=== PATIENT | female | born 1975 | race Caucasian/White ===

== ENCOUNTER 2024-04-20 16:11 | Inpatient (IN) ==
--- OUTSIDE RECORDS SUMMARY | 2024-04-20 16:17 | External Medical Summary | Summary of Care ---
Author Name Unknown Organization [facility] Address [address] [facility] [place] [address] Phone [phone] Care Team Providers Care Line Assigner Name Role Phone Priscilla Steinberg MD Primary Care Provider [phone] Encounter Details Date Type Department Care Team (Late st Contact Info) Description 01/05/2024 Orders Only PATIENT PORTAL DO NOT DELETE THIS DEPT USED BY [place] [id number] Allergies Active Allergy Reactions Criticality Noted Date Comments Albuterol Sulfate (Sensor) Medium 9 Pt has reaction to Proair, tolerates ventolin documented as of this encounter (statuses as of 01/05/2024) Medications Medication Sig Dispensed Refills Start Date End Date Status VENTOLIN HFA 108 (90 Base) MCG/ACT inhaler Inhale 2 Puffs by mouth every 6 hours as needed for Wheezing. 3 Inhaler 3 05/20/2019 Active documented as of this encounter (statuses as of 01/05/2024) Active Problems Problem Noted Date Diagnosed Date Iron deficiency anemia due to chronic blood loss 09/03/2018 Bronchospasm, exercise-induced 08/04/2014 documented as of this encounter (statuses as of 01/05/2024) Resolved Problems Problem Noted Date Diagnosed Date Resolved Date Varicella without complication 12/02/2003 08/04/2014 Other general counseling and advice for contraceptive management 12/02/2003 08/04/2014 Infectious mononucleosis 12/02/200312/2014 documented as of this encounter (statuses as of 01/05/2024) Immunizations Name Administration Dates Next Due COVID-19 mRNA, LNP-s, No Pre serve, 2-Dose Series (Moderna) 09/23/2020,08/25/2020 Seasonal Influenza, PF, 6 M & above, IM , (FluLaval or Fluzone) 06/03/2022,05/14/2021,04/17/2020 TDAP (age 10 and older)(Boostrix) 01/03/2024 documented as of this encounter Social History Tobacco Use Types Packs/Day Years Used Date Smoking Tobacco: Never Smokeless Tobacco: Never Alcohol Use Standard Drinks/Week Comments Not Currently 2.5 (1 standard drink = 0.6 oz p ure alcohol) ocassionally PHQ-2 Answer Date Recorded PHQ-2 Score -1 08/01/2018 Sex and Gender Information Value Date Recorded Sex Assigned at Not on file Gender Identity Not on file Sexual Orientation Not on file Job Start Date Occupation Industry Not on file Not on file Not on file documented as of this encounter Plan of Treatment Upcoming Encounters Date Type Department Care Team (Late st Contact Info) Description 01/06/2025 11:00 AM EDT Office Visit Family Practice [facility] [place] [address] [facility] [place] [address] Priscilla Steinberg MD [address] [place] [address] Health Maintenance Due Date Last Done Comments Pneumococcal Vaccine: Pediatrics (0 to 5 Years) and At-Risk Patients (6 to 64 Years) (1 of 2 - PCV) 1983 HIV Screening 1992 Hepatitis C Screening 1995 Hepatitis B (1 of 3 - 19+ 3-dose series) 1996 Pap Smear 1998 Cervical Cancer Screening 2007 HPV/Co-Test 2007 Mammogram 2017 Depression Screening 08/01/2019 08/01/2018 Diabetes Screening 06/18/2022 06/18/2019, 08/01/2018 Cologuard 2022 Colonoscopy 2022 Colorectal Cancer Screening 2022 Fecal Occult Blood Test 2022 Sigmoidoscopy 2022 COVID-19 Vaccine ( - 2022- season) 2023 09/23/2020, 08/25/2020 Influenza Vaccine (FLU shot) (Season Ended) 2024 06/03/2022, 05/14/2021, 04/17/2020, Additional history exists Lipid Panel 06/18/2024 06/18/2019 DTaP,Tdap,and Td Vaccines (2 - Td or Tdap) 01/02/2034 01/03/2024 GARDASIL-HPV IMMUNIZATION SERIES Aged Out No longer eligible based on patient's age to complete this topic MENINGOCOCCAL (MENACTRA/MENVEO) Aged Out No longer eligible based on patient's age to complete this topic documented as of this encounter Medical Devices Not on filedocumented as of this encounter Care Teams Line Assigner Relationship Specialty Start Date End Date Priscilla Steinberg MD [address] [place] [address] PCP - General Family Medicine 01/03/24 documented as of this encounter
--- OUTSIDE RECORDS SUMMARY | 2024-04-20 16:17 | External Medical Summary | Summary of Care ---
Author Name Unknown Organization [facility] Address [address] [place] [address] Phone [phone] Care Team Providers Care Biometrics Specialist Name Role Phone Priscilla Steinberg MD Primary Care Provider Reason for Visit * Reason Onset Date Comments Appointment 01/07/2024 Colonoscopy Encounter Details Date Type Department Care Team (Late st Contact Info) Description 01/07/2024 Telephone Family Practice [facility] [place] [address] [facility] [place] [address] [facility] [address] App[facility] (Colonoscopy) Allergies Active Allergy Reactions Criticality Noted Date Comments Albuterol Sulfate (Sensor) Medium 9 Pt has reaction to Proair, tolerates ventolin documented as of this encounter (statuses as of 01/07/2024) Medications Medication Sig Dispensed Refills Start Date End Date Status VENTOLIN HFA 108 (90 Base) MCG/ACT inhaler Inhale 2 Puffs by mouth every 6 hours as needed for Wheezing. 3 Inhaler 3 05/20/2019 Active documented as of this encounter (statuses as of 01/07/2024) Active Problems Problem Noted Date Diagnosed Date Iron deficiency anemia due to chronic blood loss 09/03/2018 Bronchospasm, exercise-induced 08/04/2014 documented as of this encounter (statuses as of 01/07/2024) Resolved Problems Problem Noted Date Diagnosed Date Resolved Date Varicella without complication 12/02/2003 08/04/2014 Other general counseling and advice for contraceptive management 12/02/2003 08/04/2014 Infectious mononucleosis 12/02/200312/2014 documented as of this encounter (statuses as of 01/07/2024) Immunizations Name Administration Dates Next Due COVID-19 [...] on file documented as of this encounter Miscellaneous Notes * Telephone Encounter - Maryjane De Guzman OSA - 01/07/2024 2:02 PM EDT Spoke to tiffany theodore 04/29/24. * Telephone Encounter - Anitha Salmeron OSA - 01/07/2024 10:03 AM EDT Patient needs to be scheduled for a colonoscopy R19.5 (ICD-10-CM) - Change in stool caliber Please reach out to the patient to schedule documented in this encounter Plan of Treatment Upcoming Encounters Date Type Department Care Team (Latest Contact Info) Description 04/29/2024 8:00 AM EDT Hospital Encounter [facility], Endoscopy Room [facility] [address] [place] [phone] Florentino Perdomo DO [address] [place] [address] 04/29/2024 8:00 AM EDT - 04/29/2024 8:30 AM EDT Surgery ENDO [facility], Endoscopy Room [facility] [address] [place] [address] Florentino Perdomo DO [address] [place] [address] COLONOSCOPY FLEXIBLE PROXIMAL DIAGNOSTIC 01/06/2025 11:00 AM EDT Office Visit Family Practice [facility] [place] [address] [facility] [place] [address] Priscilla Steinberg MD [address] [facility] [place] [address] Scheduled Procedures Name Priority Associated Diagnoses Date/Ti me COLONOSCOPY FLEXIBLE PROXIMAL DIAGNOSTIC Change in bowel habits 04/29/2024 8:00 AM EDT Health Maintenance Due Date Last Done Comments Pneumococcal Vaccine: Pediatrics (0 to 5 Years) and At-Risk Patients (6 to 64 Years) (1 of 2 - PCV) 1983 HIV Screening 1992 Hepatitis C Screening 1995 Hepatitis B (1 of 3 - 19+ 3-dose series) 1996 Pap Smear 1998 Cervical Cancer Screening 2007 HPV/Co-Test 2007 Depression Screening 08/01/2019 08/01/2018 Diabetes Screening 06/18/2022 06/18/2019, 08/01/2018 Cologuard 2022 Colonoscopy 2022 Colorectal Cancer Screening 2022 Fecal Occult Blood Test 2022 Sigmoidoscopy 2022 COVID-19 Vaccine ( season) 2023 09/23/2020, 08/25/2020 Influenza Vaccine (FLU shot) (Season Ended) 2024 06/03/2022, 05/14/2021, 04/17/2020, Additional history exists Lipid Panel 06/18/2024 06/18/2019 Mammogram 01/02/2025 01/03/2024 DTaP,Tdap,and Td Vaccines (2 - Td or Tdap) 01/02/2034 01/03/2024 GARDASIL-HPV IMMUNIZATION SERIES Aged Out No longer eligible based on patient's age to complete this topic MENINGOCOCCAL (MENACTRA/MENVEO) Aged Out No longer eligible based on patient's age to complete this topic documented as of this encounter Medical Devices Not on filedocumented as of this encounter Care Teams Biometrics Specialist Relationship Specialty Start Date End Date Priscilla Steinberg MD [address] [facility] [place] [address] PCP - General Family Medicine 01/03/24 documented as of this encounter
--- OUTSIDE RECORDS SUMMARY | 2024-04-20 16:17 | External Medical Summary | Summary of Care ---
Author Name Unknown Organization [facility] Address [address] [place] [address] Phone [phone] Care Team Providers Care Automation Tender Name Role Phone Priscilla Steinberg MD Primary Care Provider [phone] Reason for Referral * Evaluate & Treat - Unlimited Visits (Within 10 days (routine)) - Authorized Specialty Diagnoses / Procedures Referred By Betty kan Referred To Contact Psychiatry Diagnoses Inattention Priscilla Steinberg MD [address] [place] [address] Referral ID Status Reason Start Date Expiration Date Visits Requested Visits Authorized [id number] Authorized Specialty Services Required 01/03/[phone] Question Answer Referral Priority Within 10 days (routine) Where should this appointment be scheduled? [facility] Is this referral for medication management? Yes Reason for Referral ADHD Specific Condition Other (Comment) * Evaluate & Treat - Unlimited Visits (Within 30 days (routine)) - Authorized Specialty Diagnoses / Procedures Referred By Contjen t Referred To Contact Obstetrics/Gynecology / Gynecology Obstetrics Diagnoses Menorrhagia with regular cycle Priscilla Steinberg MD [address] [place] [address] Referral ID Status Reason Start Date Expiration Date Visits Requested Visits Authorized [id number] Authorized Specialty Services Required 01/03/[phone] Question Answer What condition is the patient being seen for? Heavy or irregular bleeding Patient will need a TSH, prolactin, CBC with anemia reflex, and an ultrasound prior to being seen by gynecology. I acknowledge Referral Priority Within 30 days (routine) Where should this appointment be scheduled? External * Ancillary Services (Within 10 days (routine)) - Authorized Specialty Diagnoses / Procedures Referred By Betty kan Referred To Contact Gastroenterology Diagnoses Change in stool caliber Priscilla Steinberg MD [address] [place] [address] Referral ID Status Reason Start Date Expiration Date Visits Requested Visits Authorized [id number] Authorized Ancillary Services Required 01/03/[phone] Question Answer Referral Priority Within 10 days (routine) Where should this appointment be scheduled? [facility] Comments ALERT: Do not order for pediatric patients (18 years or younger). Cancel off screen and order PEDS GASTROENTEROLOGY CONSULT (Type: 1 visit only-Evaluate and Treat) The following Pt. Instructions are available: - Gastro Colonoscopy Prep Instructions [[id number]] - Gastro Colonoscopy Prep Instructions (Turkish Version) [[id number]] Go to the Pt. Instructions section within the Visit Navigator to access. Colonoscopy ASGE Guidelines: Altered bowel habit, chronic diarrhea ADDITIONAL INFORMATION 1. Is the patient on Coumadin? No 2. Is the patient on Pradaxa? No Reason for Visit * Reason Onset Date Comments NEW PATIENT Pt here to estab [facility]. Pt concerned she may have colon cancer, wants to discuss. Pt also wants to discuss weight gain, says she is having a hard time losing. Pt also wants to discuss possible ADHD, wants to discuss medication options possibly. Immunizations 01/03/2024 Encounter Details Date Type Department Care Team (Late st Contact Info) Description 01/03/2024 11:00 AM EDT Office Visit Family Practice [facility] [address] [place] [address] Priscilla Steinberg MD [address] [place] [address] Class 1 obesity due to excess calories with body mass index (BMI) of 32.0 to 32.9 in adult, unspecified whether serious comorbidity present*; Bronchospasm, exercise-induced; Change in stool caliber; Menorrhagia with regular cycle; Iron deficiency anemia due to chronic blood loss; Inattention; Encounter for screening mammogram for malignant neoplasm of breast; Need for rwyszainzm-orgisxu-eo rtussis (Tdap) vaccine Allergies Active Allergy Reactions Criticality Noted Date Comments Albuterol Sulfate (Sensor) Medium 9 Pt has reaction to Proair, tolerates ventolin documented as of this encounter (statuses as of 01/03/2024) Medications Medication Sig Dispensed Refills Start Date End Date Status VENTOLIN HFA 108 (90 Base) MCG/ACT inhaler Inhale 2 Puffs by mouth every 6 hours as needed for Wheezing. 3 Inhaler 3 05/20/2019 Active documented as of this encounter (statuses as of 01/03/2024) Active Problems Problem Noted Date Diagnosed Date Iron deficiency anemia due to chronic blood loss 09/03/2018 Bronchospasm, exercise-induced 08/04/2014 documented as of this encounter (statuses as of 01/03/2024) Resolved Problems Problem Noted Date Diagnosed Date Resolved Date Varicella without complication 12/02/2003 08/04/2014 Other general counseling and advice for contraceptive management 12/02/2003 08/04/2014 Infectious mononucleosis 12/02/200312/2014 documented as of this encounter (statuses as of 01/03/2024) Immunizations Name Administration Dates Next Due COVID-19 [...] on file documented as of this encounter Last Filed Vital Signs Vital Sign Reading Time Taken Comments Blood Pressure 140/60 01/03/2024 10:58 AM EDT Pulse 87 01/03/2024 10:58 AM EDT Temperature 37.1 C (98.8 F) 01/03/2024 10:58 AM E DT Respiratory Rate 16 01/03/2024 10:58 AM EDT Oxygen Saturation 98% 01/03/2024 10:58 AM EDT Inhaled Oxygen Concentration - - Weight 97.7 kg (215 lb 6.4 oz) 01/03/2024 10:58 AM EDT Height 172.9 cm (5' 8.07") 01/03/2024 10:58 AM E DT Body Mass Index 32.68 01/03/2024 10:58 AM EDT documented in this encounter Patient Instructions * Patient Instructions* Kimberly Tay MED DAYAN - 01/03/2024 11:06 AM EDT ~~PATIENT INSTRUCTIONS FOR TDAP VACCINE~~ Possible side effects of TDAP vaccine, (tetanus shot), are usually mild and can include: 1. Soreness or redness at injection site 2. Low grade fever 3. Body aches You may use a fever / pain reducing medication as needed for these symptoms. LET YOUR DOCTOR KNOW IMMEDIATELY IF YOU HAVE DIFFICULTY BREATHING OR SWALLOWING, EXPERIENCE ITCHINGOF FEET OR HANDS, HAVE SWELLING OF EYES, FACE OR INSIDE OF NOSE. documented in this encounter Progress Notes * Priscilla Steinberg MD - 01/03/2024 11:10 AM EDT Subjective Chief Complaint Patient presents with NEW PATIENT Pt here to establish care. Pt concerned she may have colon cancer, wants to discuss. Pt also wants to discuss weight gain, says she is having a hard time losing. Pt also wants to discuss possible ADHD, wants to discuss medication options possibly. Immunizations HPI: Theresa Mercado is a 48 year old female. Patient is unaccompanied. The following issues were addressed today: Patient presents to establish care. The patient's past medical history, surgical history, family history, social history, vaccination history, medications, and allergies were reviewed. Has Ventolin inhaler for use as needed, mostly during exercise or when she is sick. Patient has been having pencil thin stools and is concerned. She denies blood in the stool or abdominal pain. No family history of colon cancer. Has never had colonoscopy. Difficulty losing weight. Eats a Mediterranean diet. Does not drink sugary beverages or alcohol. Walking 10,000 steps a day. Sleeps well. Had some weight gain during COV but since then she has beenmuch more active and weight is still not coming down. Has even continued to gain weight in the pastfew months. Very frustrating. Having regular periods but very heavy menstrual bleeding. Some days has to cancel plans. Has been heavier since her daughter was born. Has a history of iron deficiency anemia. She does not take iron supplement but eats a lot of iron-rich foods. No hot flashes or night sweats. Children have ADHD and she is concerned she may also have ADHD. Has a lot of the symptoms. Would like to see psychiatry to discuss diagnosis and treatment. Due for mammogram. Review of Systems: See HPI Objective BP 140/60 | Pulse 87 | Temp 37.1 C (98.8 F) (Tympanic) | Resp 16 | Ht 1.729 m (5' 8.07") | Wt 97.7 kg (215 lb 6.4 oz) | SpO2 98% | BMI 32.68 kg/m | BSA 2.17 m Wt Readings from Last 3 Encounters: 01/03/24 97.7 kg (215 lb 6.4 oz) 01/27/20 84.9 kg (187 lb 1.3 oz) 01/23/20 83.9 kg (185 lb) BP Readings from Last 3 Encounters: 01/03/24 140/60 01/27/20 100/70 01/23/20 108/64 General: Well-appearing, no acute distress Head: Normocephalic and atraumatic Eyes: No conjunctival injection, no scleral icterus, extraocular movements are intact Ears: External ear unremarkable, canals normal and tympanic membranes clear bilaterally Nose: Nasal mucosa pink and moist, nares patent bilaterally Throat/Mouth: Oral mucosa pink and moist, tongue normal in appearance without lesions and with symmetrical movement, pharynx normal in appearance Cardiovascular: Regular rate and rhythm, no murmur Respiratory: Good respiratory effort, breath sounds equal and clear to auscultation bilaterally Extremities: No edema Skin: Warm and dry Neurological: Alert and oriented, no focal deficits noted Psychiatric: Appropriate mood and affect Assessment & Plan 1. Class 1 obesity due to excess calories with body mass index (BMI) of 32.0 to 32.9 in adult, unspecified whether serious comorbidity present Check labs. Continue diet and exercise. Consider weight management referral. - COMPREHENSIVE METABOLIC PANEL; Future - HEMOGLOBIN A1C; Future - LIPID PANEL WITH DIRECT LDL IF TG IS HIGH; Future - TSH WITH FREE T4 IF INDICATED; Future 2. Bronchospasm, exercise-induced Well-controlled. Continue current medication(s). 3. Change in stool caliber - COLONOSCOPY, GI REFERRAL OP 4. Menorrhagia with regular cycle Check labs. Patient would like branch or department chief librarian referral to discuss options including hysterectomy. - SEED CORE OPERATOR REFERRAL OP - CBC WITH WBC DIFFERENTIAL; Future - IRON SCREEN, INCLUDING TIBC; Future - FERRITIN; Future 5. Iron deficiency anemia due to chronic blood loss Check labs. - CBC WITH WBC DIFFERENTIAL; Future - IRON SCREEN, INCLUDING TIBC; Future - FERRITIN; Future 6. Inattention - ADULT/PEDS PSYCHIATRY REFERRAL OP 7. Encounter for screening mammogram for malignant neoplasm of breast - MAMMOGRAM SCREENING NILS BILATERAL; Future 8. Need for paawdkxjnb-oxvykou-jhgseolwi (Tdap) vaccine - TDAP (AGE 10 AND OLDER)(BOOSTRIX) Return in about 1 year (around 01/02/2025) for annual physical. This note was electronically signed by Priscilla Steinberg MD documented in this encounter Nursing Notes * Kimberly Tay MED ASSIST - 01/03/2024 11:02 AM EDT Chief Complaint Patient presents with NEW PATIENT Pt here to establish care. Pt concerned she may have colon cancer, wants to discuss. Pt also wants to discuss weight gain, says she is having a hard time losing. Pt also wants to discuss possible ADHD, wants to discuss medication options possibly. documented in this encounter Plan of Treatment Upcoming Encounters Date Type Department Care Team (Late st Contact Info) Description 01/03/2024 3:15 PM EDT Imaging Radiology [facility] [address] [facility] [address] [place] [address] 01/06/2025 11:00 AM EDT Office Visit Family Practice [facility] [address] [facility] [place] [address] Priscilla Steinberg MD [address] [facility] [place] [address] Scheduled Orders Name Type Priority Associated Diagnoses Orde r Schedule MAMMOGRAM SCREENING NILS BILATERAL Medical Imaging Routine Encounter for screening mammogram for malignant neoplasm of breast Expected: 01/03/2024, Expires: 02/01/2025 CBC WITH WBC DIFFERENTIAL Lab Routine Menorrhagia with regular cycle Iron deficiency anemia due to chronic blood loss Expected: 01/03/2024 (Approximate), Expires: 01/02/2025 IRON SCREEN, INCLUDING TIBC Lab Routine Menorrhagia with regular cycle Iron deficiency anemia due to chronic blood loss Expected: 01/03/2024 (Approximate), Expires: 01/02/2025 FERRITIN Lab Routine Menorrhagia with regular cycle Iron deficiency anemia due to chronic blood loss Expected: 01/03/2024 (Approximate), Expires: 01/02/2025 COMPREHENSIVE METABOLIC PANEL Lab Routine Class 1 obesity due to excess calories with body mass index (BMI) of 32.0 to 32.9 in adult, unspecified whether serious comorbidity present Expected: 01/03/2024 (Approximate), Expires: 01/02/2025 HEMOGLOBIN A1C Lab Routine Class 1 obesity due to excess calories with body mass index (BMI) of 32.0 to 32.9 in adult, unspecified whether serious comorbidity present Expected: 01/03/2024 (Approximate), Expires: 01/02/2025 LIPID PANEL WITH DIRECT LDL IF TG IS HIGH Lab Routine Class 1 obesity due to excess calories with body mass index (BMI) of 32.0 to 32.9 in adult, unspecified whether serious comorbidity present Expected: 01/03/2024 (Approximate), Expires: 01/02/2025 TSH WITH FREE T4 IF INDICATED Lab Routine Class 1 obesity due to excess calories with body mass index (BMI) of 32.0 to 32.9 in adult, unspecified whether serious comorbidity present Expected: 01/03/2024 (Approximate), Expires: 01/02/2025 Scheduled Referrals Name Type Priority Associated Diagnoses Orde r Schedule COLONOSCOPY, GI REFERRAL OP Referral Within 10 days (routine) Change in stool caliber Ordered: 01/03/2024 SEED CORE OPERATOR REFERRAL OP Referral Within 30 days (routine) Menorrhagia with regular cycle Ordered: 01/03/2024 ADULT/PEDS PSYCHIATRY REFERRAL OP Referral Within 10 days (routine) Inattention Ordered: 01/03/2024 Health Maintenance Due Date Last Done Comments [...] Blood Test 2022 Sigmoidoscopy 2022 COVID-19 Vaccine (3 - 2022- season) 2023 09/23/2020, 08/25/2020 Influenza [...] Not on filedocumented as of this encounter Visit Diagnoses Diagnosis Class 1 obesity due to excess calories with body mass index (BMI) of 32.0 to 32.9 in adult, unspecified whether serious comorbidity present- Primary Bronchospasm, exercise-induced Exercise induced bronchospasm Change in stool caliber Menorrhagia with regular cycle Excessive or frequent menstruation Iron deficiency anemia due to chronic blood loss Iron deficiency anemia secondary to blood loss (chronic) Inattention Other specified conditions influencing health status Encounter for screening mammogram for malignant neoplasm of breast Other screening mammogram Need for eztevsgitc-lfmrztf-tmiefodgq (Tdap) vaccine Need for prophylactic vaccination with combined msmqgwfylb-ulzrgva-iszzjurld (DTP) vaccine documented in this encounter Care Teams Automation Tender Relationship Specialty Start Date End Date Priscilla Steinberg MD [address] [facility] [place] [address] PCP - General Family Medicine 01/03/24 documented as of this encounter
--- NOTE | 2024-04-20 16:27 | Emergency Department Note ---
Impression & Plan Vaginal bleeding, Fibroid uterus, Syncope, Anemia, Elevated troponin I level ED Provider Note NAME: MARIA C CERRATO AGE: 48 SEX: F : 1975 ARRIVES VIA: Walk-In INFORMANT: Patient, ED PROVIDER(S): Tal Joel DO CHIEF COMPLAINT: Vaginal bleeding HPI: The patient is a 48-year-old female who has a history of irregular menses who presented to the emergency department for an evaluation of pelvic pain. The patient had heavy menstrual bleeding which began earlier this afternoon. The patient's pain continued to worsen and so to her bleeding. She came to the emergency department for further evaluation. She had a near syncopal episode and was brought directly back from triage. The patient's last menstrual period was 4 weeks ago. ROS: See above HPI for pertinent positives & negatives. A total of [10] systems reviewed and were otherwise negative. PAST MEDICAL HISTORY: [See Below] PAST SURGICAL HISTORY: [See Below] FAMILY HISTORY: [See Below] SOCIAL HISTORY: [See Below] HOME MEDICATIONS: [See Below] ALLERGIES: [See Below] VITALS: See Below PHYSICAL EXAMINATION: GENERAL: The patient is awake and alert. The patient is very anxious and appears to be uncomfortable. EYES: The conjunctivae are clear. The pupils are round and reactive. EARS, NOSE, MOUTH AND THROAT: The nose is without any evidence of any deformity. NECK: The neck is nontender and supple. RESPIRATORY: Normal respiratory effort is noted there is no evidence of wheezing rhonchi or rales CARDIOVASCULAR: Regular rate and rhythm noted there no murmurs rubs or gallops normal S1 normal S2. GASTROINTESTINAL: The abdomen is soft and nondistended. There is suprapubic tenderness to palpation which is moderate. MUSCULOSKELETAL/EXTREMITIES: There is no evidence of gross deformity full range of motion is noted in the hips and shoulders. SKIN: There is no obvious evidence of any rash. There are no petechiae, pallor or cyanosis noted. NEUROLOGIC: Patient is awake alert and oriented x3 MEDICAL DECISION MAKING: The patient is a 48-year-old female who presented to the emergency department for vaginal bleeding. The patient has had problems with irregular menses for a long time. She has never been formally seen for this but started having heavy vaginal bleeding this afternoon. The patient had bleeding to the point to where she may have had a syncopal episode. The patient was not injured. I discussed the patient's laboratory and radiographic studies with her. She was found have signs of fibroid uterus on ultrasound. The patient had serial troponin measurements as well as serial hemoglobin measurements. I discussed the patient's condition with the on-call unassigned SENIOR STAFF PSYCHOLOGIST physician. They did recommend Aygestin taper. The patient was treated with IV fluids and Aygestin in the emergency department. The patient was reevaluated multiple times. The patient was feeling much better on reevaluation but continued to have some bleeding. She was ultimately felt to be a good candidate for outpatient management. She went to get up and had significant bleeding once again. She became very diaphoretic and felt as though she was in a pass out. For this reason I will discuss her condition with the on-call hospitalist. Triage Nursing notes reviewed. Prior medical records reviewed Vital Signs: reviewed and remarkable for no significant abnormalities Differential diagnosis: Etiologies such as threatened AB, miscarriage, ectopic , dysfunction uterine bleeding, bleeding dyscrasia, trauma, infection, as well as others were entertained. ER treatment provided: See below Diagnostics interpreted by me: ECG: EKG was obtained in the emergency department. My interpretation is normal sinus rhythm at 91 bpm. There is no ectopy. There is no acute ST segment abnormalities noted. No previous tracing was available in the [facility] system. Cardiac Monitoring: An order was placed for continuous cardiac monitoring. The monitor shows a rate of 74 bpm with sinus rhythm. Laboratory studies: As stated above and show below. Imaging studies: See below. Radiographic imaging was reviewed by myself Consultation(s): I discussed this case with Dr. Vasques who is on for unassigned SENIOR STAFF PSYCHOLOGIST. I discussed this case with Dr. Ford who is on-call for the [facility] hospitalist group. Past Med/Surg History Problem List (Updated 04/20/24 @ 22:49 by Tal Joel DO) Elevated troponin I level (Acute) Anemia (Acute) Syncope (Acute) Fibroid uterus (Acute) Vaginal bleeding (Acute) Social History Smoking Status: Never smoker Feels Safe at Home: Yes Allergies Allergies Allergy/AdvReac Type Severity Reaction Status Date / Time No Known Allergies Allergy Mild Verified 06/14/07 00:02 Home Meds Home Medications Medication Instructions Recorded Confirmed Multivit/Min/Iron/Fol Ac/Pren 1 tab PO DAILY ##0 06/13/07 ( Vitamin) Previous Rx's Medication Instructions Recorded norethindrone acetate 5 mg tablet 5 mg PO DAILY #45 tabs 04/20/24 Results & Data (ED) Vital Signs Vital Signs - 24 hr 04/20/24 16:16 04/20/24 16:26 04/20/24 16:35 Pulse Rate 95 H Pulse Rate [Right Finger] 87 Pulse Rate from SpO2 Sensor Respiratory Rate 20 22 Respiratory Effort / Characteristics Non-Labored Spontaneous Respiratory Depth Normal Respiratory Pattern Regular Blood Pressure 119/86 Blood Pressure [Left Arm] Blood Pressure Mean 97 Blood Pressure Mean [Left Arm] Pulse Oximetry 100 100 98 Oxygen Delivery Method Room Air Room Air Room Air Sepsis Recent Fever Within 48 Hours No Sepsis New/Unexplained Change in Mental Status N/A Sepsis Action Taken by Nursing No Action Required 04/20/24 16:48 04/20/24 17:41 04/20/24 18:00 Pulse Rate 89 Pulse Rate [Right Finger] 77 74 Pulse Rate from SpO2 Sensor Respiratory Rate 19 19 Respiratory Effort / Characteristics Non-Labored Spontaneous Respiratory Depth Normal Respiratory Pattern Blood Pressure Blood Pressure [Left Arm] 120/77 126/75 Blood Pressure Mean Blood Pressure Mean [Left Arm] 91 92 Pulse Oximetry 99 97 Oxygen Delivery Method Room Air Room Air Sepsis Recent Fever Within 48 Hours Sepsis New/Unexplained Change in Mental Status Sepsis Action Taken by Nursing 04/20/24 19:03 04/20/24 19:03 04/20/24 20:27 Pulse Rate 70 73 67 Pulse Rate [Right Finger] Pulse Rate from SpO2 Sensor 73 73 Respiratory Rate 13 12 Respiratory Effort / Characteristics Respiratory Depth Respiratory Pattern Blood Pressure 115/63 115/63 Blood Pressure [Left Arm] Blood Pressure Mean 80 73 Blood Pressure Mean [Left Arm] Pulse Oximetry 95 95 Oxygen Delivery Method Room Air Sepsis Recent Fever Within 48 Hours Sepsis New/Unexplained Change in Mental Status Sepsis Action Taken by Nursing 04/20/24 21:30 Pulse Rate 74 Pulse Rate [Right Finger] Pulse Rate from SpO2 Sensor 75 Respiratory Rate 11 L Respiratory Effort / Characteristics Respiratory Depth Respiratory Pattern Blood Pressure 116/74 Blood Pressure [Left Arm] Blood Pressure Mean 88 Blood Pressure Mean [Left Arm] Pulse Oximetry 97 Oxygen Delivery Method Sepsis Recent Fever Within 48 Hours Sepsis New/Unexplained Change in Mental Status Sepsis Action Taken by Senior Care Medications Current Medication List: was personally reviewed by me Laboratory Data Attestation: I reviewed the patient's lab results. 04/20/24 19:40 04/20/24 16:32 Lab Results 04/20/24 04/20/24 Range/Units 16:32 19:40 WBC 12.84 H (4.8-10.8) K/ul RBC 4.18 L (4.20-5.40) M/uL Hgb 11.6 L 10.6 L (12.0-16.0) g/dl POC Hgb 12.2 (12.0-16.0) g/dl Hct 37.6 33.1 L (37.0-47.0) % POC Hct 36 L (37-47) % MCV 90.0 (80.0-100.0) fL MCH 27.8 (25.0-34.0) pg MCHC 30.9 L (32.0-36.0) g/dL RDW Std Deviation 46.1 (36.4-46.3) fL RDW Coeff of Graciela 14.2 (11.5-14.5) % Plt Count 358 (130-400) K/uL MPV 11.3 (9.4-12.4) fL Immature Gran % (Auto) 0.4 % Neut % (Auto) 59.3 % Lymph % (Auto) 30.4 % Daniels % (Auto) 6.4 % Eos % (Auto) 3.0 % Baso % (Auto) 0.5 % Neut # (Auto) 7.62 H (1.40-6.50) K/uL Lymph # (Auto) 3.90 H (1.20-3.40) K/uL Daniels # (Auto) 0.82 H (0.11-0.59) K/uL Eos # (Auto) 0.39 (0.00-0.50) K/uL Baso # (Auto) 0.06 (0.00-0.20) K/uL Immature Gran # (Auto) 0.05 (0.01-0.20) K/uL PT 10.5 (9.0-12.0) Seconds INR 1.0 (0.9-1.1) APTT 23 (21-31) Seconds PTT Ratio 0.9 POC Sodium 140 (135-144) mmol/L Sodium 139 (136-145) mmol/L POC Potassium 4.2 (3.3-5.0) mmol/L Potassium 4.2 (3.5-5.1) mmol/L POC Chloride 106 (101-112) mmol/L Chloride 107 (98-107) mmol/L Carbon Dioxide 24 (21-32) mmol/L POC Total CO2 21 L (24-31) mmol/L Anion Gap 8 (3-11) POC Anion Gap 19.0 (16-25) mmol/L POC BUN 16 (7-18) mg/dl BUN 18 (6-23) mg/dl Creatinine 0.88 (0.6-1.2) mg/dl POC Creatinine 0.9 (0.6-1.3) mg/dl Est Cr Clr Drug Dosing 100.2 ml/min Est GFR ( Amer) 91.3 ml/min Est GFR (Non-Af Amer) 78.8 ml/min BUN/Creatinine Ratio 20.5 H (10-20) Glucose 150 H (70-99(Fasting)) mg/dl POC Glucose (other) 151 H (70-99) mg/dl Calcium 9.2 (8.6-10.3) mg/dl POC Ioniz Calcium Ashley 1.22 (1.12-1.32) mmol/l Total Bilirubin 0.7 (0.2-1.0) mg/dl AST 19 (13-39) U/L ALT 17 (7-52) U/L Alkaline Phosphatase 78 (34-104) U/L Troponin I High Sens 24.4 H 18.2 H D (0-14) pg/ml Total Protein 6.9 (6.0-8.3) gm/dl Albumin 4.0 (3.4-5.0) gm/dl Globulin 2.9 (2.5-4.0) gm/dl Albumin/Globulin Ratio 1.4 (0.9-2) HCG, Qual Negative (Negative) Blood Type O Positive Antibody Screen NEGATIVE Administered Medications Morphine Sulfate (Morphine Sulfate 4 Mg/Ml 1 Ml Carp\Vial) 4 mg IV Q30M PRN PRN Reason: Pain Stop: 05/04/24 16:23 Last Admin: 04/20/24 20:00 Dose: 4 mg Documented By: Admin: 04/20/24 18:08 Dose: 4 mg Documented By: ASW Discontinued Medications Sodium Chloride (Nss) 1,000 mls @ 999 mls/hr IV .Q1H1M GEOFF Stop: 04/20/24 17:30 Last Infusion: 04/20/24 17:21 Dose: Infused Documented By: Admin: 04/20/24 16:29 Dose: 999 mls/hr Documented By: ASW Morphine Sulfate (Morphine Sulfate 4 Mg/Ml 1 Ml Carp\Vial) 4 mg IV NOW STA Stop: 04/20/24 16:25 Last Admin: 04/20/24 16:29 Dose: 4 mg Documented By: ASW Norethindrone (Norethindrone 5 Mg Tab) 5 mg PO ONE STA Stop: 04/20/24 18:27 Last Admin: 04/20/24 18:50 Dose: 5 mg Documented By: CANDICE Ondansetron HCl (Ondansetron Inj 2 Mg/Ml 2 Ml Vial) 4 mg IV NOW STA Stop: 04/20/24 16:20 Last Admin: 04/20/24 16:29 Dose: 4 mg Documented By: OCTAVIOW Imaging Data Attestation: I personally reviewed and interpreted this imaging study as follows: My Impression: 1 view chest x-ray was obtained in the emergency department. My interpretation is no free air or definite infiltrate, final report below. Radiologist's Impression: Chest X-Ray 04/20/24 16:19 XR chest 1V portable CLINICAL HISTORY: Syncope. COMPARISON STUDY: No previous studies for comparison. FINDINGS: Lung volumes are normal. Lungs are clear. There is no pneumothorax or pleural effusion. Cardiac size is normal. Mediastinal contours are normal. There is no evidence for pulmonary edema. IMPRESSION: No acute cardiopulmonary findings. ACT 112: Negative or not required by law. Electronically signed by: Scar Malik M.D. 04/20/2024 4:56 PM Pelvis Ultrasound 04/20/24 16:19 PELVIC ULTRASOUND CLINICAL HISTORY: heavy bleeding COMPARISON STUDY: None. TECHNIQUE: Transabdominal and transvaginal sonography of the pelvis was performed. FINDINGS: This exam is mildly compromised by suboptimal penetration. The uterus measures 9.3 x 4.6 x 4.4 cm. Multiple hypoechoic uterine lesions favor fibroids, likely intramural in location. The largest is a 2.6 cm fibroid. The endometrium is obscured on this exam due to the fibroids however measures approximately 4 mm in thickness. Color flow is noted within each ovary. The right ovary measures 3.1 x 1.3 x 1.1 cm and the left ovary measures 2.8 x 1.4 x 1.4 cm per there is no free fluid. There is no adnexal mass. IMPRESSION: 1. Multiple fibroids measuring up to 2.6 cm. 2. Endometrium obscured by fibroids however likely normal in thickness. 3. Normal sonographic appearance of the ovaries ACT 112: Negative or not required by law. Electronically signed by: Scar Malik M.D. 04/20/2024 5:52 PM Discharge Plan Visit Data Chief Complaint: Vaginal Bleeding Stated Complaint: HEMORRAGING,VOMITING,SEIZURES ED Provider: Tal Joel Discharge Problem: Vaginal bleeding, Fibroid uterus, Syncope, Anemia, Elevated troponin I level Patient Disposition: Being Evaluated by Hospitalist Condition: Good Discharge Instructions Krames/Other Patient Handouts: ED Dysfunctional Uterine Bleeding Activity Restrictions/Additional Instructions: Continue all medications as prescribed. Call SENIOR STAFF PSYCHOLOGIST in the morning to schedule a follow-up appointment. Rest and avoid any strenuous activity. Return immediately if symptoms change worsen or the need arises. You are going to be given a prescription for Aygestin. You will take 1 tablet 4 times a day for 3 days. Then take 1 tablet 3 times a day for 4 days. Then take 1 tablet twice a day for 7 days. Then take 1 tablet a day for 7 days. Forms Stand Alone Forms: Work/School Release (ED), [facility], Important Visit Information Prescriptions Prescriptions: New norethindrone acetate 5 mg tablet 5 mg PO DAILY Qty: 45 0RF Rx Instructions: Take 1 tablet 4 times a day for 3 days. Then take 1 tablet 3 times a day for 4 days. Then take 1 tablet a day twice a day for 7 days. Then take 1 tablet a day for 7 days. No Action Multivit/Min/Iron/Fol Ac/Pren ( Vitamin) tablet 1 tab PO DAILY Qty: 0 Referrals Referrals: Sierra Urias MD, FACOG [Physician] - PCP,NO [Primary Care Provider] - Discharge Problem: Fibroid uterus Qualifiers: Uterine leiomyoma location: unspecified location Qualified Code(s): D25.9 - Leiomyoma of uterus, unspecified Syncope Qualifiers: Syncope type: unspecified Qualified Code(s): R55 - Syncope and collapse Anemia Qualifiers: Anemia type: unspecified type Qualified Code(s): D64.9 - Anemia, unspecified
[2024-04-20] MEDS: SODIUM CHLORIDE 0.9% 1,000 ML IV SCH (16:29)
[2024-04-20] MEDS: ONDANSETRON INJ 2 MG/ML 2 ML VIAL IV STA ×2 (16:29→23:19)
[2024-04-20] MEDS: MoRPHine SULFATE 4 MG/ML 1 ML CARP\\VIAL IV STA (16:29)
[2024-04-20 16:44] LABS: iSTAT Creatinine 0.9 mg/dl (0.6-1.3); iSTAT Hemoglobin 12.2 g/dl (12.0-16.0); iSTAT Ionized Calcium 1.22 mmol/l (1.12-1.32); iSTAT Potassium 4.2 mmol/L (3.3-5.0)
[2024-04-20 16:50] LABS: Basophils # (auto) 0.06 K/uL (0.00-0.20); Basophils % (auto) 0.5 %; Eosinophils # (auto) 0.39 K/uL (0.00-0.50); Hematocrit (blood only) 37.6 % (37.0-47.0); Hemoglobin 11.6 g/dl (12.0-16.0); Immature Granulocytes # (auto) 0.05 K/uL (0.01-0.20); Immature Granulocytes % (auto) 0.4 %; Lymphocytes % (auto) 30.4 %; Mean Corpuscular Hemoglobin 27.8 pg (25.0-34.0); Mean Corpuscular Hgb Conc 30.9 g/dL (32.0-36.0); Mean Platelet Volume 11.3 fL (9.4-12.4); Monocytes # (auto) 0.82 K/uL (0.11-0.59); Monocytes % (auto) 6.4 %; Neutrophils # (auto) 7.62 K/uL (1.40-6.50); Neutrophils % (auto) 59.3 %; Platelet Count 358 K/uL (130-400); RDW Coefficient of Variation 14.2 % (11.5-14.5); RDW Standard Deviation 46.1 fL (36.4-46.3); Red Blood Count 4.18 M/uL (4.20-5.40); White Blood Count 12.84 K/ul (4.8-10.8)
--- NOTE | 2024-04-20 16:58 | XRay Report ---
XR chest 1V portable CLINICAL HISTORY: Syncope. COMPARISON STUDY: No previous studies for comparison. FINDINGS: Lung volumes are normal. Lungs are clear. There is no pneumothorax or pleural effusion. Car diac size is normal. Mediastinal contours are normal. There is no evidence for pulmonary edema. IMPRESSION: No acute cardiopulmonary findings. ACT 112: Negative or not required by law. Electronically signed by: Scar Malik M.D. 04/20/2024 4:56 PM
[2024-04-20 17:05] LABS: Pregnancy Test, Serum Negative (Negative)
[2024-04-20 17:07] LABS: Albumin Globulin Ratio 1.4 (0.9-2); BUN Creatinine Ratio 20.5 (10-20); Bilirubin,Total 0.7 mg/dl (0.2-1.0); Calcium 9.2 mg/dl (8.6-10.3); Creatinine Clr Calc Pharmacy 100.2 ml/min; Est GFR (African American) 91.3 ml/min; Est GFR (Non-African American) 78.8 ml/min; Globulin 2.9 gm/dl (2.5-4.0); Potassium 4.2 mmol/L (3.5-5.1); Total Protein 6.9 gm/dl (6.0-8.3)
[2024-04-20 17:13] LABS: Troponin I High Sensitivity 24.4 pg/ml (0-14)
[2024-04-20 17:16] LABS: Partial Thromboplastin Ratio 0.9; Partial Thromboplastin Time 23 Seconds (21-31); Prothrombin Time 10.5 Seconds (9.0-12.0)
--- NOTE | 2024-04-20 17:54 | Ultrasound Report ---
PELVIC ULTRASOUND CLINICAL HISTORY: heavy bleeding COMPARISON STUDY: None. TECHNIQUE: Transabdominal and transvaginal sonography of the pelvis was performed. FINDINGS: This exam is mildly compromised by suboptimal penetration. The uterus measures 9.3 x 4.6 x 4.4 cm. Multiple hypoechoic uterine lesions favor fibroids, likely intramural in location. The larges t is a 2.6 cm fibroid. The endometrium is obscured on this exam due to the fibroids however measures approximately 4 mm in thickness. Color flow is noted within each ovary. The right ovary measures 3.1 x 1.3 x 1.1 cm and the left ovary measures 2.8 x 1.4 x 1.4 cm per there is no free fluid. There is no adnexal mass. IMPRESSION: 1. Multiple fibroids measuring up to 2.6 cm. 2. Endometrium obscured by fibroids however likely normal in thickness. 3. Normal sonographic appearance of the ovaries ACT 112: Negative or not required by law. Electronically signed by: Scar Malik M.D. 04/20/2024 5:52 PM
[2024-04-20] MEDS: MoRPHine SULFATE 4 MG/ML 1 ML CARP\\VIAL IV PRN (18:08)
[2024-04-20] MEDS: NORETHINDRONE 5 MG TAB PO STA (18:50)
[2024-04-20 20:17] LABS: Hematocrit (blood only) 33.1 % (37.0-47.0); Hemoglobin 10.6 g/dl (12.0-16.0)
[2024-04-20] MEDS: LACTATED RINGER'S 1,000 ML IV STA (23:20)
--- NOTE | 2024-04-20 23:45 | History & Physical Report ---
Date of Service April 20, 2024 Assessment & Plan (1) Syncope: Plan: Likely from orthostasis from profuse bleed Multiple fibroids on imaging Rule out structural cardiac pathology as etiology of syncope Anemia secondary to above LE swelling rule out DVT Hyperglycemia rule out DM OBS Medical telemetry IVF orthostatic vitals, TTE for syncope workup Anemia workup, transfuse PRBC if hemoglobin less than 7 and or for symptomatic anemia Gynecology consult re: GI bleed (ED provider already in touch with Dr. Vasques who recommends Aygestin course.) LE venous Dopplers rule out DVT Check hemoglobin A1c DVT prophylaxis. SCDs if no DVT on ultrasound Full code Text document was generated using [employer] voice recognition software. It may contain grammatical or spelling errors. Kindly contact undersigned for clarification of any documentation item in question. History of Present Illness Chief Complaint: Profuse vaginal bleeding, syncope Primary Care Provider: Dr. Steinberg History obtained from patient, family, and records. Medical history significant for bronchial asthma, past history of vasovagal syncope as per records, glaucoma. Patient has had menstrual periods with heavy bleeding and some pain the last 10 years. Unable to consult shaper operator due to insurance issues. Patient was in [place] to watch a game with her family today. Patient unable to get off the vehicle due to heavy menstrual bleeding. Bleeding and achy lower abdominal and back pain more than usual. No fever, no chills. No chest pain, SOB from weakness, legs more swollen than usual. Dizziness without headache symptoms and nausea symptoms. Patient passed out in the vehicle on the way to [facility] ER from [place]. No witnessed seizures. Aygestin administered at the ER following recommendations from shaper operator on- call. Patient felt sick when she got up from bed to go home from the ER. 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 Allergies Allergy/AdvReac Type Severity Reaction Status Date / Time No Known Allergies Allergy Mild Verified 04/21/24 04:34 Home Medications Medication Instructions Recorded Confirmed Type Zioptan (PF) 1 ba unit OPB HS 04/21/24 04/21/24 History Past Med/Surg History Problem List (Updated 04/20/24 @ 22:49 by Tal Joel DO) Elevated troponin I level (Acute) Anemia (Acute) Syncope (Acute) Fibroid uterus (Acute) Vaginal bleeding (Acute) Social History Smoking Status: Never smoker Hx Alcohol Use: Yes Hx Substance Use: No Preferred Language: Montserratian Communication Ability: Effective Plaster Lather Required: No Beliefs That Will Affect Care: None Current Living Situation: Spouse and Family Current Living Situation Comment: living at home with and 2 children. Feels Safe at Home: Yes Safety Concerns: Feels Safe At This Time Assistive Devices: Contacts and Glasses Review of Systems Review of Systems: As per HPI, all other systems reviewed and negative Physical Exam Physical Exam: GENERAL: uncomfortable, anxious, obese, no respiratory distress SKIN: Pallor, warm HEENT: Pale palpebral conjunctivae, no ptosis, dry buccal mucosa NECK : Supple, no tenderness CHEST : CTA, no tenderness HEART : RRR, no obvious murmurs ABDOMEN: Some distention, hypogastric tenderness EXTREMITIES : Bilateral LE swelling without LE tenderness, no other conspicuous deformities noted NEUROLOGIC : Coherent, no facial asymmetry, no other gross focality Results & Data Results & Data Vital Signs (Past 12 Hours) Vital Signs Pulse Pulse Resp BP BP Pulse Ox O2 Del Method 04/20/24 21:30 74 11 L 116/74 97 04/20/24 20:27 67 04/20/24 19:03 73 12 115/63 95 04/20/24 19:03 70 13 115/63 95 Room Air 04/20/24 18:00 74 19 126/75 97 Room Air 04/20/24 17:41 77 19 120/77 99 Room Air 04/20/24 16:48 89 04/20/24 16:35 98 Room Air 04/20/24 16:26 87 22 100 Room Air 04/20/24 16:16 95 H 20 119/86 100 Room Air Laboratory Results Laboratory Results WBC 12.84 K/ul (4.8-10.8) H 04/20/24 16:32 RBC 4.18 M/uL (4.20-5.40) L 04/20/24 16:32 Hgb 10.6 g/dl (12.0-16.0) L 04/20/24 19:40 POC Hgb 12.2 g/dl (12.0-16.0) 04/20/24 16:32 Hct 33.1 % (37.0-47.0) L 04/20/24 19:40 POC Hct 36 % (37-47) L 04/20/24 16:32 MCV 90.0 fL (80.0-100.0) 04/20/24 16:32 MCH 27.8 pg (25.0-34.0) 04/20/24 16: MCHC 30.9 g/dL (32.0-36.0) L 04/20/24 16:32 RDW Std Deviation 46.1 fL (36.4-46.3) 04/20/24 16: RDW Coeff of Graciela 14.2 % (11.5-14.5) 04/20/24 16: Plt Count 358 K/uL (130-400) 04/20/24 16: MPV 11.3 fL (9.4-12.4) 04/20/24 16:32 Immature Gran % (Auto) 0.4 % 04/20/24 16:32 Neut % (Auto) 59.3 % 04/20/24 16:32 Lymph % (Auto) 30.4 % 04/20/24 16:32 Hale % (Auto) 6.4 % 04/20/24 16:32 Eos % (Auto) 3.0 % 04/20/24 16:32 Baso % (Auto) 0.5 % 04/20/24 16:32 Neut # (Auto) 7.62 K/uL (1.40-6.50) H 04/20/24 16:32 Lymph # (Auto) 3.90 K/uL (1.20-3.40) H 04/20/24 16:32 Hale # (Auto) 0.82 K/uL (0.11-0.59) H 04/20/24 16:32 Eos # (Auto) 0.39 K/uL (0.00-0.50) 04/20/24 16: Baso # (Auto) 0.06 K/uL (0.00-0.20) 04/20/24 16: Immature Gran # (Auto) 0.05 K/uL (0.01-0.20) 04/20/24 16:32 PT 10.5 Seconds (9.0-12.0) 04/20/24 16:32 INR 1.0 (0.9-1.1) 04/20/24 16:32 APTT 23 Seconds (21-31) 04/20/24 16:32 PTT Ratio 0.9 04/20/24 16:32 POC Sodium 140 mmol/L (135-144) 04/20/24 16:32 Sodium 139 mmol/L (136-145) 04/20/24 16:32 POC Potassium 4.2 mmol/L (3.3-5.0) 04/20/24 16:32 Potassium 4.2 mmol/L (3.5-5.1) 04/20/24 16:32 POC Chloride 106 mmol/L (101-112) 04/20/24 16:32 Chloride 107 mmol/L (98-107) 04/20/24 16:32 Carbon Dioxide 24 mmol/L (21-32) 04/20/24 16:32 POC Total CO2 21 mmol/L (24-31) L 04/20/24 16:32 Anion Gap 8 (3-11) 04/20/24 16:32 POC Anion Gap 19.0 mmol/L (16-25) 04/20/24 16:32 POC BUN 16 mg/dl (7-18) 04/20/24 16:32 BUN 18 mg/dl (6-23) 04/20/24 16:32 Creatinine 0.88 mg/dl (0.6-1.2) 04/20/24 16:32 POC Creatinine 0.9 mg/dl (0.6-1.3) 04/20/24 16:32 Est Cr Clr Drug Dosing 100.2 ml/min 04/20/24 16:32 Est GFR ( Amer) 91.3 ml/min 04/20/24 16:32 Est GFR (Non-Af Amer) 78.8 ml/min 04/20/24 16:32 BUN/Creatinine Ratio 20.5 (10-20) H 04/20/24 16:32 Glucose 150 mg/dl (70-99(Fasting)) H 04/20/24 16:32 POC Glucose (other) 151 mg/dl (70-99) H 04/20/24 16:32 Calcium 9.2 mg/dl (8.6-10.3) 04/20/24 16:32 POC Ioniz Calcium Ashley 1.22 mmol/l (1.12-1.32) 04/20/24 16:32 Total Bilirubin 0.7 mg/dl (0.2-1.0) 04/20/24 16:32 AST 19 U/L (13-39) 04/20/24 16:32 ALT 17 U/L (7-52) 04/20/24 16:32 Alkaline Phosphatase 78 U/L (34-104) 04/20/24 16:32 Troponin I High Sens 18.2 pg/ml (0-14) H D 04/20/24 19:40 Total Protein 6.9 gm/dl (6.0-8.3) 04/20/24 16:32 Albumin 4.0 gm/dl (3.4-5.0) 04/20/24 16:32 Globulin 2.9 gm/dl (2.5-4.0) 04/20/24 16:32 Albumin/Globulin Ratio 1.4 (0.9-2) 04/20/24 16:32 HCG, Qual Negative (Negative) 04/20/24 16:32 Blood Type O Positive 04/20/24 16:32 Antibody Screen NEGATIVE 04/20/24 16:32 Impressions Chest X-Ray 04/20/24 16:19 XR chest 1V portable CLINICAL HISTORY: Syncope. COMPARISON STUDY: No previous studies for comparison. FINDINGS: Lung volumes are normal. Lungs are clear. There is no pneumothorax or pleural effusion. Cardiac size is normal. Mediastinal contours are normal. There is no evidence for pulmonary edema. IMPRESSION: No acute cardiopulmonary findings. ACT 112: Negative or not required by law. Electronically signed by: Scar Malik M.D. 04/20/2024 4:56 PM Pelvis Ultrasound 04/20/24 16:19 PELVIC ULTRASOUND CLINICAL HISTORY: heavy bleeding COMPARISON STUDY: None. TECHNIQUE: Transabdominal and transvaginal sonography of the pelvis was per formed. FINDINGS: This exam is mildly compromised by suboptimal penetration. The uterus measures 9.3 x 4.6 x 4.4 cm. Multiple hypoechoic uterine lesions favor fibroids, likely intramural in location. The largest is a 2.6 cm fibroid. The endometrium is obscured on this exam due to the fibroids however measures approximately 4 mm in thickness. Color flow is noted within each ovary. The right ovary measures 3.1 x 1.3 x 1.1 cm and the left ovary measures 2.8 x 1.4 x 1.4 cm per there is no free fluid. There is no adnexal mass. IMPRESSION: 1. Multiple fibroids measuring up to 2.6 cm. 2. Endometrium obscured by fibroids however likely normal in thickness. 3. Normal sonographic appearance of the ovaries ACT 112: Negative or not required by law. Electronically signed by: Scar Malik M.D. 04/20/2024 5:52 PM Diagnostic Findings EKG as per my interpretation : Rate 90, NSR, normal axis, no ischemia (1) Syncope Syncope type: unspecified Qualified Code(s): R55 - Syncope and collapse
[2024-04-20] MEDS ORDERED: KETOROLAC TROMETHAMINE 15 MG/ML VIAL IV PRN (23:47)
[2024-04-20] MEDS ORDERED: LORazepam 0.5 MG TAB PO PRN (23:47)
[2024-04-20] MEDS ORDERED: ACETAMINOPHEN 325 MG TAB PO PRN (23:47)
[2024-04-20] MEDS ORDERED: IBUPROFEN 200 MG TAB PO PRN (23:47)
[2024-04-21 01:02] LABS: Hemoglobin 9.8 g/dl (12.0-16.0); Reticulocyte % 1.82 % (0.50-2.00); Reticulocytes # 0.06 10^6/uL (0.020-0.100)
[2024-04-21 01:14] LABS: Ferritin 11.4 ng/ml (8-388)
[2024-04-21 01:22] LABS: Folate (Folic Acid),Ser orPlas 18.18 ng/ml (>5.38)
--- NOTE | 2024-04-21 02:30 | Ultrasound Report ---
Exam(s): US VENOUS BILATERAL LOWER EXTREMITIES EXAM: US Duplex Bilateral Lower Extremities Veins CLINICAL HISTORY: Reason for exam: leg swelling. TECHNIQUE: Real-time duplex ultrasound scan of the bilateral lower extremity veins integrating B-mode two-dimensional vascular structure, Doppler spectral analysis, color flow Doppler imaging and compression. COMPARISON: No relevant prior studies available. FINDINGS: Right deep veins: Unremarkable. No DVT in the right common femoral, femoral, proximal deep femoral or popliteal veins. The veins demonstrate normal color flow, are normally compressible, with normal phasic flow and/or augmentation response. Right superficial veins: Unremarkable. No thrombus in the visualized right great saphenous vein. Left deep veins: Unremarkable. No DVT in the left common femoral, femoral, proximal deep femoral or popliteal veins. The veins demonstrate normal color flow, are normally compressible, with normal phasic flow and/or augmentation response. Left superficial veins: Unremarkable. No thrombus in the visualized left great saphenous vein. Soft tissues: 3.9 x 1.5 x 2.1 cm fluid collection in the right popliteal fossa/popliteal cyst. IMPRESSION: 1. No DVT in bilateral lower extremities. 2. 3.9 x 1.5 x 2.1 cm fluid collection in the right popliteal fossa/popliteal cyst. Electronically signed by: Gabrielle Caldwell M.D. 04/21/24 02:30 AM
[2024-04-21] MEDS: PROMETHAZINE 12.5 MG/50.5 ML BAG IV PRN (02:53)
[2024-04-21 04:35] LABS: BUN Creatinine Ratio 21.4 (10-20); Calcium 8.3 mg/dl (8.6-10.3); Est GFR (African American) 120.4 ml/min; Est GFR (Non-African American) 103.9 ml/min; Potassium 4.6 mmol/L (3.5-5.1)
[2024-04-21 04:47] LABS: Basophils # (auto) 0.02 K/uL (0.00-0.20); Basophils % (auto) 0.2 %; Eosinophils # (auto) 0.01 K/uL (0.00-0.50); Eosinophils % (auto) 0.1 %; Hematocrit (blood only) 27.6 % (37.0-47.0); Hemoglobin 8.9 g/dl (12.0-16.0); Immature Granulocytes # (auto) 0.05 K/uL (0.01-0.20); Immature Granulocytes % (auto) 0.4 %; Lymphocytes # (auto) 1.29 K/uL (1.20-3.40); Lymphocytes % (auto) 10.9 %; Mean Corpuscular Hemoglobin 28.7 pg (25.0-34.0); Mean Corpuscular Hgb Conc 32.2 g/dL (32.0-36.0); Mean Platelet Volume 11.4 fL (9.4-12.4); Monocytes % (auto) 4.2 %; Neutrophils # (auto) 9.93 K/uL (1.40-6.50); Neutrophils % (auto) 84.2 %; Platelet Count 246 K/uL (130-400); RDW Coefficient of Variation 14.1 % (11.5-14.5); RDW Standard Deviation 45.6 fL (36.4-46.3)
[2024-04-21] MEDS: NORETHINDRONE 5 MG TAB PO SCH (05:39)
[2024-04-21 07:41] LABS: Appearance Urine Clear (Clear); Bacteria Urine Automated None Seen (None Seen); Bilirubin Urine Negative (Negative); Blood Urine Trace (Negative); Cast Urine Automated 0-2 /lpf (0-2); Color Urine Yellow; Epithelial Cell Urine Auto 0-2 /hpf (0-2); Glucose Urine UA Negative (Negative); Ketones Urine Negative (Negative); Leukocyte Esterase Urine Negative (Negative); Nitrite Urine Negative (Negative); Protein Urine Negative (Negative); RBC Urine Automated 0-2 /hpf (0-2); Specific Gravity Urine 1.012 (1.000-1.030); Urobilinogen Urine Negative (Negative); WBC Urine Automated 0-5 /hpf (0-5); pH Urine 6.5 (4.5-7.5)
[2024-04-21 08:01] LABS: Estimated Average Glucose 111 mg/dl; Hemoglobin A1C 5.5 % (4.5-5.6)
[2024-04-21] MEDS: FERROUS SULFATE 325 MG TAB PO SCH ×2 (09:11→20:25)
--- NOTE | 2024-04-21 10:43 | OB/GYN Consultation ---
Date of Consultation April 21, 2024 Assessment & Plan (1) Vaginal bleeding: Given that the bleeding has stopped at this time and vitals are stable, would recommend that she continue the course of Aygestin taper. 4 times daily x 4 days, 3 times daily x 3 days, twice daily x 7 days, once daily x 7 days. She is aware that she will need to continue the medication even though the bleeding has stopped. She may have a bleed at the conclusion of the taper. She would like to avoid blood transfusion if at all possible. I think that it is reasonable to hold transfusion at this time. I discussed outpatient workup with patient, would recommend that she be seen in our office to undergo further workup including Pap smear, endometrial sampling. Briefly discussed potential options for management, including a hormonal control, IUD, surgical treatments such as endometrial ablation or hysterectomy. I will send a message to our office to contact patient for outpatient follow-up, and patient is aware to call our office if she does not hear anything in the next few days. History of Present Illness Reason for Consultation: vaginal bleeding Requesting Physician: Dr Gan Attending Physician: Cali Maldonado MD History of Present Illness 48-year-old -0-2-2 presented to the emergency department yesterday with heavy vaginal bleeding and syncopal episode. She describes a long history of heavy periods, occurring monthly, with the first day or 2 of passing large clots and leaking around a menstrual cup. These have been progressively worsening over the years. No bleeding between periods. LMP 04/20/2024. In this current episode, she developed very heavy menstrual bleeding while in [place] at her son's football game, she began passing clots in the toilet. She felt that it was best to travel back home to [place] for evaluation, and on the way lost consciousness and was brought to the emergency department by her . She was seen in the emergency department, my colleague Dr. Vasques was consulted by phone and recommended patient be started on Aygestin taper, and the plan was to discharge home. However, then she got up again in the emergency department and went to the bathroom and began to pass more large clots. Decision was then made to admit to hospitalist service for further workup. She is still in the emergency department at this time, awaiting a bed. At the time of my visit, she states the bleeding has completely stopped. We reviewed her ultrasound report, noting a uterus measuring 9.3 x 4.6 x 4.4 cm, multiple small fibroids, largest 2.6 cm. Endometrium appears normal thickness 4 mm. Normal ovaries, no pelvic free fluid. Her labs show arrival hemoglobin 11.6, ultimately dropping to 8.9 this morning. Suspect this is both related to heavy menstrual bleeding as well as receiving IV fluids in the emergency department. States she discussed blood transfusion with a doctor in the emergency department, is declining at this time unless absolutely necessary, as she has a close friend who contracted hepatitis C from a blood transfusion. She is aware that this is possible but extremely low risk, and would like to avoid transfusion at this time unless it becomes absolutely necessary. History of x 2, miscarriage x 2, 1 requiring dilation and evacuation. Last gynecology visit 13 years ago at the time of her younger son's . Possibly a remote history of abnormal Pap smear, did not require treatment or follow-up. Had taken control in the past, felt that she did not like the side effects. Allergies Allergy/AdvReac Type Severity Reaction Status Date / Time No Known Allergies Allergy Mild Verified 04/21/24 04:34 Home Medications Medication Instructions Recorded Confirmed Type Zioptan (PF) 1 ba unit OPB HS 04/21/24 04/21/24 History Patient History Social History Smoking Status: Never smoker Hx Alcohol Use: Yes Hx Substance Use: No Preferred Language: Turkmen Communication Ability: Effective Hat Brusher Machine Required: No Beliefs That Will Affect Care: None Current Living Situation: Spouse and Family Current Living Situation Comment: living at home with and 2 children. Feels Safe at Home: Yes Safety Concerns: Feels Safe At This Time Assistive Devices: Contacts and Glasses Physical Exam Physical Exam: Patient is awake and talking, lying in bed. No respiratory distress. Patient states bleeding has stopped, has some dried blood on thighs, but no pelvic exam performed due to no active bleeding. Results & Data Vital Signs (Past 12 Hours) Vital Signs Pulse Pulse Resp BP BP Pulse Ox Pulse Ox 04/21/24 08:30 61 14 108/59 L 97 04/21/24 07:33 62 17 100 04/21/24 07:30 117/62 09/23/24 07:18 76 04/21/24 07:09 63 15 98 04/21/24 07:00 105/57 L 04/21/24 05:46 60 12 115/62 97 04/21/24 03:03 68 12 115/63 95 04/21/24 03:00 65 22 115/63 98 04/21/24 03:00 95 04/21/24 02:31 70 18 125/66 98 04/21/24 02:17 68 12 133/93 96 04/21/24 02:15 70 18 133/93 97 04/21/24 02:12 64 12 133/93 96 04/21/24 01:00 69 16 124/66 99 04/21/24 00:00 64 16 117/73 95 O2 Del Method O2 Del Method 04/21/24 08:30 Room Air 04/21/24 07:33 Room Air 04/21/24 07:30 04/21/24 07:18 04/21/24 07:09 Room Air 04/21/24 07:00 04/21/24 05:46 Room Air 04/21/24 03:03 Room Air 04/21/24 03:00 04/21/24 03:00 Room Air 04/21/24 02:31 04/21/24 02:17 Room Air 04/21/24 02:15 04/21/24 02:12 Room Air 04/21/24 01:00 04/21/24 00:00 PG Care Time/CCT Total # of Minutes Spent Total Time Spent with Patient: Total time spent is greater than 50% in coordination of care (as documented) at patient's floor/unit and/or counseling patient: Coding Level of Care Code 90332 OFFICE CONSULT LVL 30M Diagnoses Vaginal bleeding N93.9
[2024-04-21 11:01] LABS: Hematocrit (blood only) 29.8 % (37.0-47.0); Hemoglobin 9.4 g/dl (12.0-16.0)
[2024-04-21 16:25] LABS: Hematocrit (blood only) 26.5 % (37.0-47.0); Hemoglobin 8.4 g/dl (12.0-16.0)
[2024-04-21] MEDS ORDERED: traMADol HCL 50 MG TABLET PO PRN (17:12)
[2024-04-21] MEDS ORDERED: HYDROCODONE/ACETAMOPHEN 5/325MG TAB PO PRN (17:12)
[2024-04-21] MEDS: SODIUM CHLORIDE 0.9% 1,000 ML IV SCH (17:25)
--- NOTE | 2024-04-21 17:55 | Hospitalist Progress Note ---
Date of Service April 21, 2024 Assessment & Plan (1) Syncope: Plan: Likely secondary to acute blood loss anemia Uterine fibroids Hemoglobin 8.4 as of 4 PM Repeat hemoglobin at 10 PM Continue IV NSS at 125 cc/h Continue Aygestin, to be tapered off for 3 weeks per [employer] service Iron level 27 Start ferrous sulfate twice daily No arrhythmias per telemetry Echocardiogram unrevealing LE swelling rule out DVT IMPRESSION: 1. No DVT in bilateral lower extremities. 2. 3.9 x 1.5 x 2.1 cm fluid collection in the right popliteal fossa/popliteal cyst. resolving Hyperglycemia rule out DM DVT prophylaxis. SCDs Full code Admission and Anticipated Discharge Date Admission Date: April 20, 2024 Subjective Follow-up for acute blood loss anemia, vaginal bleeding, etc. Seen resting in bed, sitting up, in good spirits, very pleasant States she feels better overall compared to yesterday Still having some mild lightheadedness but no presyncope syncope, chest pain, shortness of breath No recurrence of vaginal bleeding today Denies pain No other new symptom Review of Systems Review of Systems: all noted and negative except for above Physical Exam Physical Exam: General- oriented x 3, not in distress, speaks in sentences with no effort or accessory muscle use Eyes- anicteric Neck- no JVD Lungs- clear breath sounds bilaterally Heart- normal rate, regular rhythm; no murmurs Abdomen- normal bowel sounds, nondistended, soft, no tenderness Extremities- no pretibial edema, no calf tenderness Neuro- alert, oriented x 3; no gross focal neurologic deficits Skin- warm & dry Results & Data Results & Data Vital Signs (Past 12 Hours) Vital Signs Temp Pulse Pulse Resp BP BP Pulse Ox 04/21/24 15:51 37.0 C 84 16 108/69 99 04/21/24 14:06 83 04/21/24 12:53 04/21/24 12:49 36.6 C 73 16 134/78 98 04/21/24 12:21 118/64 04/21/24 12:15 78 14 98 04/21/24 10:30 95 H 16 133/68 99 04/21/24 09:33 90 16 99 04/21/24 09:30 130/65 04/21/24 09:18 88 13 98 04/21/24 09:00 131/66 04/21/24 08:30 61 14 108/59 L 97 04/21/24 07:33 62 17 100 04/21/24 07:30 117/62 04/21/24 07:18 76 04/21/24 07:09 63 15 98 04/21/24 07:00 105/57 L O2 Del Method 04/21/24 15:51 Room Air 04/21/24 14:06 04/21/24 12:53 Room Air 04/21/24 12:49 Room Air 04/21/24 12:21 04/21/24 12:15 Room Air 04/21/24 10:30 Room Air 04/21/24 09:33 Room Air 04/21/24 09:30 04/21/24 09:18 Room Air 04/21/24 09:00 04/21/24 08:30 Room Air 04/21/24 07:33 Room Air 04/21/24 07:30 04/21/24 07:18 04/21/24 07:09 Room Air 04/21/24 07:00 all noted and reviewed including below (1) Syncope Syncope type: unspecified Qualified Code(s): R55 - Syncope and collapse
[2024-04-21] MEDS: HYDROCODONE/ACETAMOPHEN 5/325MG TAB PO PRN (20:25)
[2024-04-21 22:56] LABS: Hematocrit (blood only) 25.5 % (37.0-47.0); Hemoglobin 8.1 g/dl (12.0-16.0)
[2024-04-22 07:10] LABS: Basophils # (auto) 0.05 K/uL (0.00-0.20); Basophils % (auto) 0.7 %; Eosinophils # (auto) 0.22 K/uL (0.00-0.50); Eosinophils % (auto) 2.9 %; Hematocrit (blood only) 24.5 % (37.0-47.0); Immature Granulocytes # (auto) 0.04 K/uL (0.01-0.20); Immature Granulocytes % (auto) 0.5 %; Lymphocytes # (auto) 2.23 K/uL (1.20-3.40); Lymphocytes % (auto) 29.4 %; Mean Corpuscular Hemoglobin 29.2 pg (25.0-34.0); Mean Corpuscular Hgb Conc 32.7 g/dL (32.0-36.0); Mean Corpuscular Volume 89.4 fL (80.0-100.0); Mean Platelet Volume 11.2 fL (9.4-12.4); Monocytes # (auto) 0.35 K/uL (0.11-0.59); Monocytes % (auto) 4.6 %; Neutrophils # (auto) 4.69 K/uL (1.40-6.50); Neutrophils % (auto) 61.9 %; Platelet Count 202 K/uL (130-400); RDW Coefficient of Variation 14.6 % (11.5-14.5); RDW Standard Deviation 47.5 fL (36.4-46.3); Red Blood Count 2.74 M/uL (4.20-5.40); White Blood Count 7.58 K/ul (4.8-10.8)
[2024-04-22 07:35] LABS: BUN Creatinine Ratio 19.7 (10-20); Calcium 7.7 mg/dl (8.6-10.3); Est GFR (Non-African American) 94.1 ml/min; Potassium 4.1 mmol/L (3.5-5.1)
[2024-04-22 07:57] VITALS: RESP 16
[2024-04-22] MEDS: IRON SUCROSE 300 MG in SODIUM CHLORIDE 0.9% 250 ML IV ONE (10:19)
[2024-04-22 10:25] VITALS: O2SAT 98
[2024-04-22 11:56] VITALS: BP 106/65; PULSE 96; TEMP 98.1
--- NOTE | 2024-04-22 12:38 | Discharge Summary ---
<Statement entered by Josiah Martinez, DO - 04/22/24 14:50> I have seen and examined the patient and have discussed the case with the provider above. I have reviewed the advanced practitioner's documentation, and I agree with, and take responsibility for that plan of care. 11 minutes spent on care and coordination for patient. Patient states feeling a little bit weak this morning but anticipates improving with some more time to get up and move around. Reviewed iron infusion and follow-up plans with [facility] Discharge plan as outlined below. Discharge Summary Date of Service April 22, 2024 Principal Dx & Hospital Course #1 = Principal Diagnosis (1) Syncope: Likely secondary to acute blood loss anemia Uterine fibroids Hemoglobin 8.4 as of 4 PM Repeat hemoglobin at 10 PM was 8.1 Repeat hemoglobin 04/22 a.m. was 8.0 Iron low at 26 and ferritin normal but on lower end at 11 Pt has GI sx with oral iron and therefore she received IV Iron 300mg I recommend patient have further discussion with PCP regarding future doses of IV venofer if indicated She was seen and evaluated by PARTS CONSULTANT Dr. Enciso who recommends outpatient work up in the next 1-2 weeks Continue progesterone taper to be tapered off over 3 weeks as per [employer]S CONSULTANT Continue oral iron supplementation as tolerated and increase iron intake in diet No arrhythmias per telemetry Echocardiogram unrevealing Dispo: discharge to home with PCP and [facility]S CONSULTANT Follow up Notes For Next Care Provider Please repeat CBC at hospital follow up appointment Recommend further consideration for IV iron infusions repeat Iron panel in 2-3 months Medication Changes From Visit Ferrous Sulfate one tablet by mouth twice daily. Encourage you to take this medication with Vitamin C or orange juice Norethindrone acetate 5mg * 1 tablet by mouth four times daily for 3 days * 1 tablet by mouth three times daily fro 3 days * 1 tablet by mouth twice daily for 7 days * 1 tablet by mouth daily for 7 days Admission HPI Per Admitting Provider History obtained from patient, family, and records. Medical history significant for bronchial asthma, past history of vasovagal syncope as per records, glaucoma. Patient has had menstrual periods with heavy bleeding and some pain the last 10 years. Unable to consult container finishing inspector due to insurance issues. Patient was in [place] to watch a game with her family today. Patient unable to get off the vehicle due to heavy menstrual bleeding. Bleeding and achy lower abdominal and back pain more than usual. No fever, no chills. No chest pain, SOB from weakness, legs more swollen than usual. Dizziness without headache symptoms and nausea symptoms. Patient passed out in the vehicle on the way to [facility] ER from [place]. No witnessed seizures. Aygestin administered at the ER following recommendations from container finishing inspector on- call. Patient felt sick when she got up from bed to go home from the ER. 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 Admission Exam Per Admitting Provider GENERAL: uncomfortable, anxious, obese, no respiratory distress SKIN: Pallor, warm HEENT: Pale palpebral conjunctivae, no ptosis, dry buccal mucosa NECK : Supple, no tenderness CHEST : CTA, no tenderness HEART : RRR, no obvious murmurs ABDOMEN: Some distention, hypogastric tenderness EXTREMITIES : Bilateral LE swelling without LE tenderness, no other conspicuous deformities noted NEUROLOGIC : Coherent, no facial asymmetry, no other gross focalit Discharge Exam Gen: WD/WN, NAD, A&O x3 HEENT: Normocephalic, atraumatic, conjunctivae moist, sclerae anicteric, mucous membranes moist. Lung: Clear to Auscultation bilaterally, no wheezes/rales/rhonchi Heart: Regular rate, regular rhythm, no murmurs, rubs, or gallops Abdomen: Soft, NT, ND +BS x 4 Extremities: No edema Skin: Warm, no rash, negative turgor. Updated Medication List Medication Instructions Recorded Confirmed Type Zioptan (PF) 1 ba unit OPB HS 04/21/24 04/21/24 History ferrous sulfate 325 mg (65 mg 325 mg PO BID #60 tabs 04/22/24 Rx iron) tablet,delayed release norethindrone acetate 5 mg tablet 5 mg PO QID #42 tabs 04/22/24 Rx Hospital Stay Data Consultations 04/20/24 23:01 ED Decision to Admit Stat 04/20/24 23:48 Consult Gynecology Routine Assessment & Plan (1) Vaginal bleeding: Given that the bleeding has stopped at this time and vitals are stable, would recommend that she continue the course of Aygestin taper. 4 times daily x 4 days, 3 times daily x 3 days, twice daily x 7 days, once daily x 7 days. She is aware that she will need to continue the medication even though the bleeding has stopped. She may have a bleed at the conclusion of the taper. She would like to avoid blood transfusion if at all possible. I think that it is reasonable to hold transfusion at this time. I discussed outpatient workup with patient, would recommend that she be seen in our office to undergo further workup including Pap smear, endometrial sampling. Briefly discussed potential options for management, including a hormonal control, IUD, surgical treatments such as endometrial ablation or hysterectomy. I will send a message to our office to contact patient for outpatient follow-up, and patient is aware to call our office if she does not hear anything in the next few days. Diagnostic Imagining Performed Chest X-Ray 04/20/24 16:19 XR chest 1V portable CLINICAL HISTORY: Syncope. COMPARISON STUDY: No previous studies for comparison. FINDINGS: Lung volumes are normal. Lungs are clear. There is no pneumothorax or pleural effusion. Cardiac size is normal. Mediastinal contours are normal. There is no evidence for pulmonary edema. IMPRESSION: No acute cardiopulmonary findings. ACT 112: Negative or not required by law. Electronically signed by: Scar Malik M.D. 04/20/2024 4:56 PM Pelvis Ultrasound 04/20/24 16:19 PELVIC ULTRASOUND CLINICAL HISTORY: heavy bleeding COMPARISON STUDY: None. TECHNIQUE: Transabdominal and transvaginal sonography of the pelvis was performed. FINDINGS: This exam is mildly compromised by suboptimal penetration. The uterus measures 9.3 x 4.6 x 4.4 cm. Multiple hypoechoic uterine lesions favor fibroids, likely intramural in location. The largest is a 2.6 cm fibroid. The endometrium is obscured on this exam due to the fibroids however measures approximately 4 mm in thickness. Color flow is noted within each ovary. The right ovary measures 3.1 x 1.3 x 1.1 cm and the left ovary measures 2.8 x 1.4 x 1.4 cm per there is no free fluid. There is no adnexal mass. IMPRESSION: 1. Multiple fibroids measuring up to 2.6 cm. 2. Endometrium obscured by fibroids however likely normal in thickness. 3. Normal sonographic appearance of the ovaries ACT 112: Negative or not required by law. Electronically signed by: Scar Malik M.D. 04/20/2024 5:52 PM Transvaginal US 04/20/24 16:19 PELVIC ULTRASOUND CLINICAL HISTORY: heavy bleeding COMPARISON STUDY: None. TECHNIQUE: Transabdominal and transvaginal sonography of the pelvis was performed. FINDINGS: This exam is mildly compromised by suboptimal penetration. The uterus measures 9.3 x 4.6 x 4.4 cm. Multiple hypoechoic uterine lesions favor fibroids, likely intramural in location. The largest is a 2.6 cm fibroid. The endometrium is obscured on this exam due to the fibroids however measures approximately 4 mm in thickness. Color flow is noted within each ovary. The right ovary measures 3.1 x 1.3 x 1.1 cm and the left ovary measures 2.8 x 1.4 x 1.4 cm per there is no free fluid. There is no adnexal mass. IMPRESSION: 1. Multiple fibroids measuring up to 2.6 cm. 2. Endometrium obscured by fibroids however likely normal in thickness. 3. Normal sonographic appearance of the ovaries ACT 112: Negative or not required by law. Electronically signed by: Scar Malik M.D. 04/20/2024 5:52 PM Venous Doppler Study 04/20/24 23:48 Exam(s): US VENOUS BILATERAL LOWER EXTREMITIES EXAM: US Duplex Bilateral Lower Extremities Veins CLINICAL HISTORY: Reason for exam: leg swelling. TECHNIQUE: Real-time duplex ultrasound scan of the bilateral lower extremity veins integrating B-mode two-dimensional vascular structure, Doppler spectral analysis, color flow Doppler imaging and compression. COMPARISON: No relevant prior studies available. FINDINGS: Right deep veins: Unremarkable. No DVT in the right common femoral, femoral, proximal deep femoral or popliteal veins. The veins demonstrate normal color flow, are normally compressible, with normal phasic flow and/or augmentation response. Right superficial veins: Unremarkable. No thrombus in the visualized right great saphenous vein. Left deep veins: Unremarkable. No DVT in the left common femoral, femoral, proximal deep femoral or popliteal veins. The veins demonstrate normal color flow, are normally compressible, with normal phasic flow and/or augmentation response. Left superficial veins: Unremarkable. No thrombus in the visualized left great saphenous vein. Soft tissues: 3.9 x 1.5 x 2.1 cm fluid collection in the right popliteal fossa/popliteal cyst. IMPRESSION: 1. No DVT in bilateral lower extremities. 2. 3.9 x 1.5 x 2.1 cm fluid collection in the right popliteal fossa/popliteal cyst. Electronically signed by: Gabrielle Caldwell M.D. 04/21/24 02:30 AM Pending Results Patient Have Any Pending Studies at Discharge: No Discharge Instructions Given to Patient (Per Discharging Provider) MEDICATION CHANGES: Ferrous Sulfate one tablet by mouth twice daily. Encourage you to take this medication with Vitamin C or orange juice Norethindrone acetate 5mg * 1 tablet by mouth four times daily for 3 days * 1 tablet by mouth three times daily fro 3 days * 1 tablet by mouth twice daily for 7 days * 1 tablet by mouth daily for 7 days SUMMARY OF TEST RESULTS: You were admitted to hospital due to passing out. You were found to be anemic which is felt in part due to iron deficiency as well as uterine bleeding. Your hemoglobin on day of discharge was 8.0. You received an iron infusion prior to discharge. You had an US of your heart (echocardiogram) which was unremarkable. PENDING TEST RESULTS: None RECOMMENDATIONS FOR FOLLOW-UP: Please follow up with your PARTS CONSULTANT provider upon discharge from hospital for further evaluation and treatment of uterine bleeding. Please follow up with your Primary Care Provider as scheduled. It is recommended you discuss the need for further IV iron infusions as outpatient. It is recommended you have your hemoglobin rechecked within 1 week. It is recommended you have your iron levels re checked in 2-3 months. It is recommended that you take a daily stool softener to help prevent constipation while on oral iron supplement. Please take it easy and move slowly as your hemoglobin is low and may result in increase fatigue and shortness of breath. OTHER INSTRUCTIONS: Seek medical attention if you have: * temperature above 101 * chest pain or trouble breathing * abdominal pain, nausea, vomiting * diarrhea, dark stools or bloody stools * any unanswered questions or concerns Call 911 if symptoms are severe. Please take good care of yourself. It has been a pleasure taking care of you. Please take care of yourself. If you have any questions regarding your recent hospitalization please contact [facility] and request Darryl Banegas @ [phone]. Total Time Total Time Spent Total Time Spent (In Minutes): 35 minutes
--- NOTE | 2024-04-22 20:58 | Electrocardiogram Report ---
Test Reason : Blood Pressure : */* mmHG Vent. Rate : 91 BPM Atrial Rate : 91 BPM P-R Int : 132 ms QRS Dur : 78 ms QT Int : 360 ms P-R-T Axes : 65 35 51 degrees QTcB Int : 442 ms Normal sinus rhythm Normal ECG No previous ECGs available Confirmed by King Plaza ([id number]) on 04/22/2024 8:57:38 PM Referred By: Confirmed By: King Plaza
== END 2024-04-22 15:20 | disposition home or self-care (01) | DRG 760 ==
LOC: EDINP 16:11 → ED 16:11 → 2N 04-21 00:38 → SUATTDRO 04-21 17:52